=== PATIENT | male | born 1970 | race African-American/Black ===

== ENCOUNTER → 2019-03-27 11:32 | Outpatient (CLI) | payer OTHER, SELFPAY ==
[2019-03-27 13:00] LABS: Influenza A - CEPHEID Flu A POSITIVE (NEGATIVE); Influenza B - CEPHEID Flu B NEGATIVE (NEGATIVE)
== END ==
PROVIDERS: Referring Provider Family Medicine; Visit Provider Family Medicine
DX: R68.89 Other general symptoms and signs (principal)
CPT/HCPCS: 87502

== ENCOUNTER → 2020-06-04 15:41 | Outpatient (ROUT) | payer OTHER, SELFPAY | PROVIDERS: Visit Provider Family Medicine | DX: R31.9 Hematuria, unspecified (principal) | CPT/HCPCS: 87086 ==

== ENCOUNTER → 2020-06-26 09:53 | Outpatient (CLI) | payer OTHER, SELFPAY ==
--- NOTE | 2020-06-26 09:59 | DI.US.S_ITS ---
PROCEDURE: US RENAL COMPLETE INDICATIONS: Cystitis, unspecified with hematuria TECHNIQUE: Real-time scanning was performed of the kidneys and bladder, with image documentation. COMPARISON: None. FINDINGS: Kidneys: Kidneys are normal in size. Right kidney measures 11.5 cm long; left kidney measures 12.1 cm long. Right renal cortical thickness is 1.9 cm; left renal cortical thickness is 2 cm. Renal cortical echotexture is normal. No hydronephrosis. Question of nonshadowing echogenic foci in both kidneys. No suspicious solid mass lesions. Bladder: Pre-void bladder volume is 233 mL. Post-void residual is 0 mL. Pre-void images demonstrate no intraluminal masses or stones. On pre-void images, both ureteral jets are noted with color Doppler interrogation. (Of note, ureteral jets may not be detectable in up to 25% of cases due to insufficient differences in specific gravity between ureteral and bladder urine). Miscellaneous: No free pelvic fluid. IMPRESSION: 1. No hydronephrosis. 2. Echogenic foci in the kidneys may represent tiny kidney stones. -Consider CT KUB for further evaluation. 3. No postvoid residual. Dictated by: Federico Hager M.D. on 06/26/2020 at 11:36 Approved by: Federico Hager M.D. on 06/26/2020 at 11:41
== END ==
PROVIDERS: PCP Family Medicine; Referring Provider Family Medicine; Visit Provider Family Medicine
DX: N30.91 Cystitis, unspecified with hematuria (principal)
CPT/HCPCS: 76770

== ENCOUNTER → 2020-12-12 14:12 | Outpatient (CLI) | payer OTHER, SELFPAY ==
--- NOTE | 2020-12-12 | DI.MRI.S_ITS ---
PROCEDURE: MR SHOULDER RT WO CON INDICATIONS: RIGHT SHOULDER PAIN TECHNIQUE: Noncontrast oblique coronal T2 fast spin echo with fat saturation, oblique sagittal T1 spin echo and T2 fast spin echo with fat saturation, axial T1 spin echo and T2 fast spin echo with fat saturation through the shoulder. COMPARISON: None. FINDINGS: Image quality: Excellent. Rotator cuff: There is full-thickness tearing of the supraspinatus tendon and the anterior fibers of the infraspinatus tendon from their distal insertions measuring approximately 1.7 cm in anterior-posterior dimension with proximal tendon retraction measuring up to 2 cm. There is mild tendinosis of the posterior infraspinatus tendon fibers. The teres minor tendon is intact. There is moderate subscapularis tendinosis with low-grade intrasubstance tearing at the distal insertion. No significant rotator cuff muscle atrophy is seen. Bones and bursae: Mild edema at the anterior aspect of the greater trochanter is most likely related to tendon traction versus a direct contusion. There is moderate acromioclavicular joint osteoarthrosis with marginal osteophyte formation and mild subchondral edema. A small glenohumeral effusion communicates with the subacromial/subdeltoid bursa. Capsule and soft tissues: No displaced labral tear is seen. The intra-articular portion of the biceps long head tendon appears mildly attenuated, and partial tearing is suspected. Partial effacement of the fat in the rotator interval is seen. The glenohumeral ligaments appear to be intact. IMPRESSION: 1. Full-thickness tearing of the supraspinatus tendon and the anterior fibers of the infraspinatus tendon measuring 1.7 cm in anterior-posterior dimension with approximately 2 cm of proximal tendon retraction. 2. Moderate subscapularis tendinosis with superimposed low-grade intrasubstance tearing at the distal insertion. 3. Mild trabecular bone injury at the greater tuberosity is most likely secondary to supraspinatus tendon traction versus a prior direct contusion. 4. Increased signal and attenuation of the intra-articular biceps long head tendon is suspicious for partial tearing. 5. Moderate acromioclavicular joint osteoarthrosis. 6. Small glenohumeral effusion communicates with the subacromial/subdeltoid bursa. Dictated by: Obey Leonardo M.D. on 12/12/2020 at 16:14 Approved by: Obey Leonardo M.D. on 12/12/2020 at 16:20
== END ==
PROVIDERS: PCP Family Medicine; Referring Provider Family Medicine; Visit Provider Family Medicine
DX: S46.011A Strain of muscle(s) and tendon(s) of the rotator cuff of right shoulder, initial encounter (principal); M25.511 Pain in right shoulder; M19.011 Primary osteoarthritis, right shoulder; M25.411 Effusion, right shoulder; X58.XXXA Exposure to other specified factors, initial encounter
CPT/HCPCS: 73221

== ENCOUNTER → 2020-12-25 11:27 | Outpatient (ROUT) | payer OTHER, SELFPAY ==
[2020-12-25 11:37] LABS: Appearance Urine UA SL CLOUDY; Bilirubin Urine UA NEGATIVE (NEGATIVE); Color Urine UA YELLOW; Glucose Urine UA NEGATIVE (Negative); Ketones Urine UA TRACE (NEGATIVE); Leukocyte Esterase Urine UA 3+ (NEGATIVE); Nitrite Urine UA POSITIVE (Negative); Occult Blood Urine UA 1+ (Negative); Protein Urine UA TRACE (Negative); Specific Gravity Urine UA 1.015 (1.000-1.035)
[2020-12-25 11:50] LABS: RBC Urine 1-5/HPF (0-5/HPF)
[2020-12-25 11:51] LABS: Amorphous Sediment Urine 1+; Bacteria Urine Many (>30); Culture Indicated Urine Specimen Cultured; Squamous Epithelial Cell Urine 0-1 /HPF (0-5/HPF); WBC Urine 30-100/HPF (0-5/HPF)
== END ==
PROVIDERS: PCP Family Medicine; Visit Provider Family Medicine
DX: R35.0 Frequency of micturition (principal); R30.9 Painful micturition, unspecified
CPT/HCPCS: 81001; 87077; 87086; 87186

== ENCOUNTER → 2023-09-06 13:40 | Outpatient (ROUT) | payer OTHER, SELFPAY ==
[2023-09-06 13:53] LABS: Add Manual Diff / Slide Review NO; Basophils Absolute Auto 0 /uL (0-100); Basophils Percent Auto 0.5 % (0-2); Eosinophils Absolute Auto 100 /uL (0-450); Eosinophils Percent Auto 2.5 % (2-4); Hemoglobin 14.6 g/dL (13.5-17.5); Lymphocytes Absolute Auto 2100 /uL (1100-4500); Lymphocytes Percent Auto 39.8 % (25-40); Mean Corpuscular HGB Conc 33.3 % (30-36); Mean Corpuscular Hemoglobin 31.1 PG (26-34); Mean Corpuscular Volume 93.5 fL (80-100); Monocytes Absolute Auto 400 /uL (0-900); Monocytes Percent Auto 7.7 % (3-14); Neutrophils Absolute Auto 2600 /uL (1500-7000); Neutrophils Percent Auto 49.5 % (50-75); Platelet Count 217 X10^3/uL (150-400); Red Blood Cell Count 4.71 X10^6/uL (4.5-5.9); Red Cell Distribution Width 12.5 % (11.6-14.8); White Blood Cell Count 5.2 X10^3/uL (4.5-11.0)
[2023-09-06 14:21] LABS: Hemoglobin A1C% w Est Avg Glu 6.3 % (4.0-6.0)
[2023-09-06 14:47] LABS: Alanine Aminotransferase 31 IU/L (<50); Albumin 4.7 g/dL (3.5-5.0); Albumin Globulin Ratio 1.6 (1.0-2.8); Alkaline Phosphatase 93 U/L (38-126); Aspartate Aminotransferase 28 IU/L (17-59); BUN Creatinine Ratio 15.1 (6-22); Bilirubin Total 0.7 mg/dL (0.2-1.3); Blood Urea Nitrogen 14 mg/dL (9-20); Calcium 9.4 mg/dL (8.4-10.2); Carbon Dioxide 30 mmol/L (22-32); Chloride 101 mmol/L (98-107); Cholesterol 248 mg/dL (140-199); Estimated Glomerular Filt Rate > 60 mL/min (>60); Glucose 128 mg/dL (70-100); HDL Cholesterol 61 mg/dL (40-60); HEMOLYSIS 24 (0-50); Potassium 4.1 mmol/L (3.4-5.1); Sodium 140 mmol/L (137-145); Total Protein 7.7 g/dL (6.3-8.2)
[2023-09-06 15:06] LABS: Prostate Specific Antigen 0.452 ng/mL (0.10-4.00)
[2023-09-06 16:17] LABS: Vitamin D 25 Hydroxy (D3) 18.3 ng/mL (30.0-100.0)
== END ==
PROVIDERS: PCP Family Medicine; Visit Provider Family Medicine
DX: Z00.00 Encounter for general adult medical examination without abnormal findings (principal); E88.819 Insulin resistance, unspecified; N39.0 Urinary tract infection, site not specified; E55.9 Vitamin D deficiency, unspecified
CPT/HCPCS: 80053; 82306; 82465; 83036; 83718; 84153; 85025

== ENCOUNTER → 2024-07-13 14:54 | Outpatient (CLI) | payer OTHER, SELFPAY ==
--- NOTE | 2024-07-13 14:55 | DI.MRI.S_ITS ---
PROCEDURE: MR KNEE LT WO CON INDICATIONS: Lt knee pain TECHNIQUE: Noncontrast sagittal PD fast spin echo and T2 fast spin echo with fat saturation, sagittal 3-D FLASH with fat saturation; coronal T1 spin echo and PD fast spin echo with fat saturation, and axial PD fast spin echo with fat saturation through the knee. COMPARISON: None. FINDINGS: Image quality: Excellent. Menisci: Subtle irregularities of the free edge of the midbody and posterior horn of the medial meniscus suspicious for radial tears, degenerative changes. The medial meniscus appears mildly displaced anteriorly on the sagittal images. There is posterior meniscocapsular separation medial greater than lateral with several posterior 5 mm parameniscal cysts. The lateral meniscus is otherwise intact without focal tear. Cruciate ligaments: Mild increased T2 weighted signal and thinning of the distal anterior cruciate ligament commonly mild injury/strain but with intact fibers without complete tear. Posterior cruciate ligament is normal in size and signal. Medial structures: Mild edema medially surrounding the medial collateral ligament but with intact fibers without tear commonly mild grade 1 injury. Mild increased T2 weighted signal and thickening of the distal semimembranosus tendon, tendinopathy without tear. Mild edema and mild increased bursal fluid surrounding the distal pes anserine tendons, tendinopathy without tear or retraction. Lateral structures: Moderate increased T2 weighted signal and thickening, tendinopathy of the distal popliteus tendon. Mild edema in the distal popliteus muscle suggests injury/strain. The lateral collateral ligament, long and short heads of the biceps femoris tendon appear intact. Iliotibial band appears normal. Anterior structures: Nonspecific prepatellar subcutaneous edema. Mild edema in the infrapatellar fat pad. The quadriceps and patellar tendons appear intact. Patellar alignment is normal. No femoral trochlear dysplasia or ventral trochlear prominence. Bones and cartilage: Mild nonspecific increased T2 weighted signal/edema in the medial tibial plateau predominantly medially more likely related to degenerative changes with moderate to severe diffuse cartilaginous thinning than nondepressed tibial plateau fracture. There is also mild edema in the medial and lateral patellar facets with irregularity of the patellar cartilage predominantly in the lateral facet and central ridge. Mild cartilaginous thinning in the lateral compartment without focal cartilage defect. Joint space: [id number] knee joint effusion. No significant popliteal cyst. IMPRESSION: Multiple findings most notably with fraying of the midbody and posterior horn of the medial meniscus, posterior meniscocapsular separation, injury/strain of the anterior cruciate ligament. Tendinopathy of the distal popliteus tendon,. Moderate knee joint effusion. Dictated by: Giacomo Stacy M.D. on 07/14/2024 at 12:11 Approved by: Giacomo Stacy M.D. on 07/14/2024 at 12:52
== END ==
PROVIDERS: PCP Family Medicine; Referring Provider Family Medicine; Visit Provider Family Medicine
DX: M25.562 Pain in left knee (principal); M25.462 Effusion, left knee; M67.962 Unspecified disorder of synovium and tendon, left lower leg
CPT/HCPCS: 73721